=== PATIENT | female | born 1995 | race Caucasian/White ===

== ENCOUNTER 2017-10-20 12:21 | Emergency (ER) | payer OTHER ==
[2017-10-20 12:29] VITALS: BP 134/87
--- NOTE | 2017-10-20 12:46 | EDPHY ---
HPI/HX/ROS/PE/MDM Narrative: CHIEF COMPLAINT: Left thumb laceration HPI: The patient is a 21 y/o female presenting to the emergency department with a left thumb laceration. Around one hour ago she was helping set up a pop-up tent when it collapsed and cut her finger. The bleeding stopped for a short period of time, but started again. She denies other injury, headache, neck pain, chest pain, shortness of breath, abdominal pain, urinary or bowel complaints, numbness , paresthesias, fever. REVIEW OF SYSTEMS: Aside from elements discussed in the HPI, a comprehensive 10 system review of systems is otherwise negative. PMH: Depression, foot fracture SOCIAL HISTORY: Student at , single, lives in [place] PHYSICAL EXAM: General: Patient is alert, in no acute distress. Left Hand: 2cm linear laceration on the ulnar aspect of her left thumb. Normal distal capillary refill. Light touch sensation and motor function is preserved in the axillary, median, radial and ulnar nerve distributions. There is a 2+ radial pulse with brisk cap refill. Neuro: Oriented x3. Normal motor function. Normal sensory function. ED Course: 1246: Reassessed patient and performed a laceration repair. Procedure: Laceration repair. Verbal consent was obtained from the patient. The linear 2cm laceration on the on the ulnar aspect of the left thumb was anesthetized using mixed Lidocaine and Bupivacaine without epinephrine. The wound was cleaned with standard ED protocol, draped and explored to its base with a gloved finger. There were no deep structures involved. No tendon injury was identified. The wound was repaired in single layer technique with #4 5-0 Prolene. The wound repair was simple. The procedure was performed by myself, Dr. Maloney. 1330: Reassessed patient and discussed suture removal in 10-14 days. Return precautions provided; patient is comfortable with this plan. General Time Seen by Provider: 10/20/17 12:39 Initial Vital Signs: Initial Vital Signs Temperature (C) 36.8 C 10/20/17 12:27 Heart Rate 100 10/20/17 12:27 Respiratory Rate 18 10/20/17 12:27 Blood Pressure 134/87 H 10/20/17 12:27 O2 Sat (%) 97 10/20/17 12:27 O2 Delivery Mode Room Air Allergies/Adverse Reactions: No Known Allergies Allergy (Unverified 10/20/17 12:26) Home Medications: Medication Instructions Recorded Loratadine 10/20/17 Wellbutrin 150mg XL 10/20/17 Departure - Departure Disposition: Home, Routine, Self-Care Clinical Impression: Laceration of left thumb Qualifiers: Encounter type: initial encounter Damage to nail status: without damage Foreign body presence: without foreign body Qualified Code(s): S61.012A - Laceration without foreign body of left thumb without damage to nail, initial encounter Condition: Good Instructions: Care For Your Stitches (ED), Laceration (ED), Finger Laceration ( ED) Additional Instructions: Sutures out in 10-14 days. Return to the Emergency Department for fever, redness, discharge from wound, increasing pain or other worsening of condition. Referrals: Vickie Alcaraz DO [Primary Care Provider] - As per Instructions Report Scribed for: Antonio Maloney Report Scribed by: Steph Landry Date of Report: 10/20/17 Time of Report: 12:41 Physician Review and Approval Statement: Portions of this note were transcribed by an ED scribe. I personally performed the history, physical exam, and medical decision making; and confirm the accuracy of the information in the transcribed note.
== END 2017-10-20 14:03 | disposition home or self-care (01) ==
PROC: 0HQGXZZ Repair Left Hand Skin, External Approach (ICD-10-PCS; principal; 2017-10-20)
DX: S61.012A Laceration without foreign body of left thumb without damage to nail, initial encounter (principal); W26.8XXA Contact with other sharp object(s), not elsewhere classified, initial encounter; Y92.9 Unspecified place or not applicable